=== PATIENT | female | born 1965 | race Caucasian/White ===

== ENCOUNTER 2021-07-23 08:34 | Observation (INO) | payer BC ==
--- NOTE | 2021-07-23 08:40 | EDM.PDOC ---
ED HPI GENERAL MEDICAL PROBLEM - General Chief Complaint: Trauma Stated Complaint: EMS Time Seen by Provider: 07/23/21 08:35 Source of Information: Reports: Patient History Limitations: Reports: No Limitations - History of Present Illness INITIAL COMMENTS - FREE TEXT/NARRATIVE: Patient is a 56-year-old female who presents today after fall down a few steps. Per patient she is unsure she hit her head which does have a bruise. Patient has a left arm deformity and was placed in a sling by EMS and given morphine and Versed. Patient is awake but seems slightly sleepy likely from the medication was answer questions appropriately. On exam she complains of pain to the left arm. She denies any chest or lower extremity pain. Patient airways intact good bilateral breath sounds and good pulses in the upper extremities Bilateral Arm Pain Score (Numeric/FACES): 10 - Related Data Allergies Allergy/AdvReac Type Severity Reaction Status Date / Time No Known Allergies Allergy Verified 07/23/21 08:39 Home Meds: Home Meds . [No Known Home Meds] 07/23/21 [History] Review of Systems - Review of Systems Review Of Systems: See Below Constitutional: Reports: No Symptoms Eyes: Reports: No Symptoms Ears: Reports: No Symptoms Nose: Reports: No Symptoms Mouth/Throat: Reports: No Symptoms Respiratory: Reports: No Symptoms Cardiovascular: Reports: No Symptoms GI/Abdominal: Reports: No Symptoms Genitourinary: Reports: No Symptoms Musculoskeletal: Reports: Arm Pain Skin: Reports: No Symptoms Neurological: Reports: No Symptoms Psychiatric: Reports: No Symptoms ED EXAM, GENERAL - Physical Exam Exam: See Below Exam Limited By: Intoxication General Appearance: Alert, WD/WN, Mild Distress Eye Exam: Bilateral Eye: EOMI, PERRL Throat/Mouth: Normal Inspection, Other (Bleeding from left-sided tongue) Neck: Normal Inspection, Supple, Tender Midline Respiratory/Chest: No Respiratory Distress, Lungs Clear, Normal Breath Sounds Cardiovascular: Normal Peripheral Pulses, Regular Rate, Rhythm GI/Abdominal: Normal Bowel Sounds, Soft, Non-Tender Extremities: Normal Range of Motion (Normal range of motion all other extremities), Limited Range of Motion (Limited range of motion of left elbow). No: Normal Inspection (Deformity of left elbow and right thumb lower extremities are intact) Neurological: Alert, Oriented ED TRAUMA EXTREMITY PROCEDURES - Joint Reduction Left Elbow Sedation: Conscious Sedation Pre-Procedure NV Status: Normal Post-Procedure NV Status: Normal Technique: Traction/Counter Traction Number of Attempts: 2 Post-Reduction Imaging: Acceptably Reduced, Fracture Seen Joint Reduction Complications: No Progress/Comments: We attempted to reduce twice looks to be in but will be moving seems to have slipped out again. We did speak to orthopedics and states that it could just be unstable joint and that needs to be repaired. Patient was placed in a splint and remains neurovascular intact. Course - Vital Signs Last Recorded V/S: Last Vital Signs Temp 97.8 F 07/23/21 08:37 Pulse 98 07/23/21 15:32 Resp 18 07/23/21 15:32 BP 190/106 H 07/23/21 15:32 Pulse Ox 98 07/23/21 15:32 - Orders/Labs/Meds Orders: Active Orders 24 hr Category Date Time Status CORONAVIRUS COVID-19 KANDY [MOLEC] Stat Lab 07/23/21 15:39 Received Labs: Laboratory Tests 07/23/21 07/23/21 07/23/21 Range/Units 10:55 10:55 10:55 WBC 16.09 H (4.0-11.0) K/uL RBC 4.18 L (4.30-5.90) M/uL Hgb 14.6 (12.0-16.0) g/dL Hct 41.0 (36.0-46.0) % MCV 98.1 H (80.0-98.0) fL MCH 34.9 H (27.0-32.0) pg MCHC 35.6 (31.0-37.0) g/dL RDW Std Deviation 45.3 (28.0-62.0) fl RDW Coeff of Michael 13 (11.0-15.0) % Plt Count 283 (150-400) K/uL MPV 9.60 (7.40-12.00) fL Neut % (Auto) 84.6 H (48.0-80.0) % Lymph % (Auto) 9.9 L (16.0-40.0) % Dade % (Auto) 4.5 (0.0-15.0) % Eos % (Auto) 0.6 (0.0-7.0) % Baso % (Auto) 0.4 (0.0-1.5) % Neut # (Auto) 13.6 H (1.4-5.7) K/uL Lymph # (Auto) 1.6 (0.6-2.4) K/uL Dade # (Auto) 0.7 (0.0-0.8) K/uL Eos # (Auto) 0.1 (0.0-0.7) K/uL Baso # (Auto) 0.1 (0.0-0.1) K/uL Nucleated RBC % 0.0 /100WBC Nucleated RBCs # 0 K/uL INR 0.96 APTT 23.0 (18.6-31.3) SEC Sodium 138 (136-145) mmol/L Potassium 3.5 (3.5-5.1) mmol/L Chloride 101 (98-107) mmol/L Carbon Dioxide 24.6 (21.0-32.0) mmol/L BUN 7 (7.0-18.0) mg/dL Creatinine 0.6 (0.6-1.0) mg/dL Est Cr Clr Drug Dosing 82.80 mL/min Estimated GFR (MDRD) > 60.0 ml/min Glucose 174 H (74-106) mg/dL Calcium 8.1 L (8.5-10.1) mg/dL Total Bilirubin 0.3 (0.2-1.0) mg/dL AST 38 H (15-37) IU/L ALT 48 (14-63) IU/L Alkaline Phosphatase 70 (46-116) U/L Total Protein 7.1 (6.4-8.2) g/dL Albumin 3.7 (3.4-5.0) g/dL Globulin 3.4 (2.6-4.0) g/dL Albumin/Globulin Ratio 1.1 (0.9-1.6) Ethyl Alcohol 5 mg/dL Meds: Medications Discontinued Medications Generic Name Dose Route Start Last Admin Trade Name Freq PRN Reason Stop Dose Admin Ketamine HCl Confirm 07/23/21 13:21 Ketamine 500 Mg/10 Ml Mdv Administered 07/23/21 13:22 Dose 500 mg .ROUTE .STK-MED ONE Ketorolac Tromethamine Confirm 07/23/21 13:21 Ketorolac 15 Mg/Ml Sdv Administered 07/23/21 13:22 Dose 15 mg .ROUTE .STK-MED ONE Morphine Sulfate 4 mg 07/23/21 09:02 07/23/21 09:10 Morphine 4 Mg/Ml Syringe IVPUSH 07/23/21 09:03 4 mg ONETIME ONE Administration Propofol Confirm 07/23/21 13:21 Propofol 200 Mg/20 Ml Sdv Administered 07/23/21 13:22 Dose 200 mg .ROUTE .STK-MED ONE - Re-Assessments/Exams Free Text/Narrative Re-Assessment/Exam: 07/23/21 11:35 Patient C-spine is negative collar will be removed. Will talk to neurosurgery she has a small subdural before we reduce arm. 07/23/21 12:26 Still waiting to hear back from neurosurgery did contact our general surgeon he remain with case and we will likely transfer due to subdural and elbow dislocation. 07/23/21 15:[address] Mora from orthopedics at [place] and made him aware that we are having difficulty keeping the elbow in place he states that he wants the patient is neurovascularly intact and is somewhat aligned to the patient can follow-up with his colleague and [facility]'s week. We spoke to our trauma surgeon here and we will keep patient in the ED and observe and likely discharge. Patient will be given all of the discharge instructions. 07/23/21 15:49 Dr. Aranda Orthopedic Surgery Azucena [phone] [place] [address] [address], [address] Departure - Departure Time of Disposition: 15:49 Disposition: Refer to Observation Condition: Good Clinical Impression: Subdural hematoma, Elbow dislocation - Discharge Information *PRESCRIPTION DRUG MONITORING PROGRAM REVIEWED*: Not Applicable *COPY OF PRESCRIPTION DRUG MONITORING REPORT IN PATIENT MARGARET: Not Applicable Instructions: Subdural Hematoma Evacuation, Care After Referrals: Rosalio Negrete MD [Primary Care Provider] - Forms: ED Department Discharge Critical Care Note - Critical Care Note Total Time (mins): 55 Comments: Critical Care Procedure Note Authorized and Performed by: Dr. Gamez Total critical care time: Approximately Due to a high probability of clinically significant, life threatening deterioration, the patient required my highest level of preparedness to intervene emergently and I personally spent this critical care time directly and personally managing the patient. This critical care time included obtaining a history; examining the patient; pulse oximetry; ordering and review of studies; arranging urgent treatment with development of a management plan; evaluation of patient's response to treatment; frequent reassessment; and, discussions with other providers. This critical care time was performed to assess and manage the high probability of imminent, life-threatening deterioration that could result in multi-organ failure. It was exclusive of separately billable procedures and treating other patients and teaching time. Sepsis Event Note (ED) - Focused Exam Vital Signs: Vital Signs Temp Pulse Resp BP Pulse Ox 07/23/21 15:32 98 18 190/106 H 98 07/23/21 15:00 100 18 146/114 H 98 07/23/21 14:30 96 19 201/109 H 99 07/23/21 14:00 101 H 18 193/117 H 97 07/23/21 13:30 96 19 200/124 H 98 07/23/21 13:00 104 H 18 178/102 H 98 07/23/21 12:30 104 H 19 182/102 H 97 07/23/21 12:08 99 18 190/103 H 98 07/23/21 11:34 102 H 19 175/100 H 96 07/23/21 11:04 106 H 18 171/95 H 95 07/23/21 10:32 100 19 176/105 H 94 L 07/23/21 10:05 93 18 170/95 H 95 07/23/21 09:30 89 19 158/94 H 95 07/23/21 09:04 18 170/100 H 96 07/23/21 08:37 97.8 F 79 18 158/87 H 96 07/23/21 08:34 98.2 F 84 18 158/81 H 93 L - My Orders Last 24 Hours: My Active Orders 07/23/21 15:39 CORONAVIRUS COVID-19 KANDY [MOLEC] Stat - Assessment/Plan Last 24 Hours: My Active Orders 07/23/21 15:39 CORONAVIRUS COVID-19 KANDY [MOLEC] Stat Plan: Patient is a 56-year-old female who presents today for a fall down steps. Patient has obvious left elbow deformity and possible right thumb dislocation. Patient has some minimal tenderness on the midline of the neck the patient smells of alcohol but states she had drinks last night. Will obtain labs CT and reassess patient.
[2021-07-23] MEDS ORDERED: Morphine 4 MG/ML Syringe IVPUSH ONE (09:02)
--- NOTE | 2021-07-23 09:42 | CR ---
Indication: Injury and pain Technique: Left hand 2 views Comparison: None Findings: Bones: Alignment is normal. No fractures or bone lesions. Joint spaces: Mild arthritic changes in the IP joints and 1st CMC joint. Soft tissues: Unremarkable. Impression: No sign of acute injury. No sign of acute fracture or dislocation. Dictated by Henrique Martinez MD @ 07/23/2021 9:39:[address] Henrique Martinez @ Jul 23 2021 9:39AM
--- NOTE | 2021-07-23 09:43 | CR ---
Indication: Trauma, fall with elbow deformity Technique: Left forearm 2 views Comparison: None Findings/Impression: Bones: There is a dislocation of the elbow joint. A displaced bone fragment is believed to represent an avulsion fracture of the coronoid process. No other distinct fracture. Soft tissues: Generalized soft tissue swelling. Dictated by Henrique Martinez MD @ 07/23/2021 9:42:[address] Henrique Martinez @ Jul 23 2021 9:42AM
--- NOTE | 2021-07-23 10:00 | CR ---
Indication: Thumb dislocation Technique: Right hand 3 views Comparison: None Findings: Bones: The thumb is dislocated at the metacarpophalangeal joint. Alignment otherwise normal. No fracture evident. Joint spaces: Moderate arthritic changes in the IP joints and 1st CMC joint. Soft tissues: Unremarkable. Dictated by Henrique Martinez MD @ 07/23/2021 9:59:[address] Henrique Martinez @ Jul 23 2021 9:59AM
--- NOTE | 2021-07-23 10:55 | CT ---
INDICATION: Trauma, fall. TECHNIQUE: CT head without contrast. COMPARISON: None. FINDINGS: CSF spaces: Within normal limits for age. Brain parenchyma and extra-axial spaces: There is a very small thin acute subdural hematoma along the anterior interhemispheric fissure demonstrated on the axial series 201, image 24 in the sagittal series 203, image 21. No other sign of intracranial hemorrhage. No mass effect or midline shift. Farris-white matter distinction intact. Skull base and calvarium: The visualized paranasal sinuses and mastoid air cells demonstrate no acute or significant findings. The visualized orbits are grossly unremarkable. No skull fractures. Left frontal scalp contusion present. IMPRESSION: Left frontal scalp contusion with a very small thin acute subdural hematoma along the anterior interhemispheric fissure. Remainder of the exam is unremarkable. Please note that all CT scans at this facility use dose modulation, iterative reconstruction, and/or weight-based dosing when appropriate to reduce radiation dose to as low as reasonably achievable. Dictated by Henrique Martinez MD @ 07/23/2021 10:53:[address] Henrique Martinez @ Jul 23 2021 10:53AM
--- NOTE | 2021-07-23 10:59 | CT ---
INDICATION: Trauma, fall. TECHNIQUE: CT cervical spine without contrast. COMPARISON: None FINDINGS: Vertebrae: Alignment is normal. There are no fractures or suspicious bony lesions. Discs and facet joints: There are degenerative disc changes most severe at C5-6 and C6-7. There are multilevel degenerative changes in the facets. Extraspinal findings: Paraspinous soft tissues are unremarkable. IMPRESSION: 1. No sign of acute injury. 2. Multilevel degenerative spondylosis. Please note that all CT scans at this facility use dose modulation, iterative reconstruction, and/or weight-based dosing when appropriate to reduce radiation dose to as low as reasonably achievable. Dictated by Henrique Martinez MD @ 07/23/2021 10:58:[address] Henrique Martinez @ Jul 23 2021 10:58AM
[2021-07-23 12:01] LABS: BLOOD UREA NITROGEN,BUN 7 mg/dL (7.0-18.0); CARBON DIOXIDE,CO2 24.6 mmol/L (21.0-32.0); CHLORIDE,CL 101 mmol/L (98-107); GLUCOSE RANDOM 174 mg/dL (74-106); POTASSIUM,K 3.5 mmol/L (3.5-5.1); SODIUM,NA 138 mmol/L (136-145)
--- NOTE | 2021-07-23 12:13 | CR ---
INDICATION: Fall down stairs. TECHNIQUE: Chest 1 view. COMPARISON: None FINDINGS: Cardiovascular and mediastinum: Heart size and vasculature are normal in caliber and appearance. Mediastinum is within normal limits. Lungs and pleural space: Lungs are clear. No pleural effusion. No pneumothorax. Bones and soft tissues: No acute findings. IMPRESSION: No acute abnormality identified. Dictated by Howie Roe MD @ 07/23/2021 12:11:[address] Howie Roe @ Jul 23 2021 12:11PM
[2021-07-23] MEDS ORDERED: Ketorolac 15 MG/ML SDV ONE (13:21)
[2021-07-23] MEDS ORDERED: Ketamine 500 mg/10 ML MDV ONE (13:21)
[2021-07-23] MEDS ORDERED: Propofol 200 MG/20 ML SDV ONE (13:21)
--- NOTE | 2021-07-23 14:09 | PCM.SN.2 ---
- Free Text/Narrative Note: Anesthesia Start:1330 Anesthesia End: 1400 Asked to provide procedural sedation for ER patient requiring closed reduction left elbow and closed reduction right thumb. Verbal consent obtained and time out performed. Full monitoring in place and oxygen by NC at 3l/min IV toradol 15mg + 100mg IV propofol +75mg IV Ketamine administered. VSS. Patient recovered to person and place following successful reduction and report given to CARE ASSOCIATE. Dilip Ardon MD
--- NOTE | 2021-07-23 14:40 | CR ---
INDICATION: Post reduction. TECHNIQUE: AP and lateral views of the left elbow. COMPARISON: Left elbow x-rays performed earlier today. FINDINGS: Partial reduction of the fracture dislocation. Radius and ulna remained dislocated laterally with respect to the humerus. Comminuted fracture fragments of the radial head displaced. Fiberglass splint in place. IMPRESSION: Persistent lateral dislocation of the radius and ulna with respect to the humerus and comminuted radial head fracture fragments displaced. Dictated by Carlos Gordon MD @ 07/23/2021 2:38:[address] Carlos Gordon @ Jul 23 2021 2:38PM
--- NOTE | 2021-07-23 14:48 | CR ---
Indication: Dislocation post reduction Technique: Right thumb 3 views Comparison: 07/23/2021 Findings/Impression: Dislocation has been successfully reduced. Bone alignment is now normal. No fracture or other new abnormality. Dictated by Henrique Martinez MD @ 07/23/2021 2:47:[address] Henrique Martinez @ Jul 23 2021 2:47PM
[2021-07-23] MEDS ORDERED: Ondansetron 4 MG/2 ML SDV IVPUSH PRN (17:44)
[2021-07-23] MEDS ORDERED: Lactated Ringers 1,000 ML IV SCH (17:45)
[2021-07-23] MEDS ORDERED: LORazepam 1 MG Tab PO PRN (17:51)
[2021-07-23] MEDS ORDERED: Metoprolol Succinate 100 MG Tab.ER PO SCH (18:30)
[2021-07-23] MEDS: Morphine 10 MG/ML Syringe IVPUSH PRN ×2 (19:48→23:36)
--- NOTE | 2021-07-23 20:38 | CONS ---
DATE OF CONSULTATION: 07/23/2021 DATE OF : 1965 PRIMARY CARE PHYSICIAN: Rosalio Negrete M.D. SUBJECTIVE: The patient is a pleasant 56-year-old female who slipped down her stairs earlier this morning. She thinks she fell down about 5 steps. She denies any loss of consciousness. She says it happened very quickly, is unsure if she hit her head or not though. She did come into the ER, was evaluated by our ER attending, Dr. Gamez. She was found to have radius and ulnar dislocation fracture of elbow. Dr. Gamez said he tried to reduce it a couple of times but got it better. This has been discussed and he did discuss with Orthopedics in [place] with Dr. Mora, who said to keep the splint on and follow up in clinic. The patient also had a dislocated right thumb that has been put back into place. The patient had a very small, thin, acute subdural hematoma. This again was also discussed with Dr. Mora of Neurosurgery, who she will follow up next week. The patient had a CT of the spine, which showed no acute abnormalities. Chest x-ray was normal. Currently, the patient says she is feeling better. Her only pain she says is in her right thumb, her left elbow. She denies any other pain or discomfort. When seen, she was actually walking around her ER room. Her C-collar has been cleared by the ER. The patient says currently she is feeling okay. Her pain is well controlled. PAST MEDICAL HISTORY: 1. Fibromyalgia. 2. Hypertension. 3. Anxiety. 4. Depression. ALLERGIES: No known drug allergies. PAST SURGICAL HISTORY: The patient denies any. FAMILY HISTORY: Family history of diabetes and thyroid disease. Sister has rheumatoid arthritis. SOCIAL HISTORY: 1. Denies any smoking, but does smoke marijuana on occasion. 2. Denies any drug use. 3. Has 3-4 beers a couple times a week. The patient says last night she was drinking on the phone with her sister, but she only had 3-4 beers. REVIEW OF SYSTEMS: Complete 12 plus review of systems was done and was negative other than HPI. CURRENT HOME MEDICATIONS: 1. Cyclobenzaprine 10 mg p.o. daily. 2. Ibuprofen 200 mg as needed. 3. Lorazepam 1 mg t.i.d. as needed. 4. Magnesium 400 mg p.o. daily. 5. Metformin 5 mg p.o. daily. 6. Metoprolol 100 mg 1-1/2 tablet every 24 hours. 7. Sertraline 50 mg daily. 8. Telmisartan 80 mg p.o. daily. IMAGING: As per HPI. LABS: White cell count is 16.09, hemoglobin is 14.6, platelet count is 283. INR 0.96. Sodium 138, potassium 3.5, chloride 101, BUN 7, creatinine 0.6, bilirubin 0.8, AST is 38, ALT is 48, alkaline phosphatase is 70. Alcohol was 5. COVID was negative. PHYSICAL EXAMINATION: GENERAL: The patient is alert, oriented, in no acute distress. VITAL SIGNS: Temperature is 97.8, pulse is 105, blood pressure is 190/108, saturating 98% on room air. HEENT: Head is normocephalic. She looks to have a slight bruise on her upper left forehead. Eyes are round, reactive into light. NECK: Supple. No pain. She has full motion. LUNGS: She has bilateral rhonchi or wheezing heard. HEART: Regular rate and rhythm. No murmur appreciated. BACK: No step-offs and no bruising. ABDOMEN: Soft, nontender, nondistended. EXTREMITIES: No edema. She does have swelling in her right thumb but it is mobile. Left arm is in the splint. NEUROLOGIC: She is walking around and then appears to have no gross deficit. ASSESSMENT AND PLAN: This is a pleasant 56-year-old female who fell down 5 steps earlier this morning. She was found to have a very small, thin, acute subdural hematoma on the anterior hemispheric fissure. She also has left dislocation of her elbow joint and right thumb dislocation. Dr. Gamez has discussed the patient with both Neurosurgery and Orthopedics who feel that operation is needed. At this point, this is in good position. The patient should be admitted for observation and then discharge for outpatient followup. I did go over the patient what the plan was. She will be admitted for observation. We will check a CT scan in the morning. If there is expansion of the subdural, then she will go home and followup with Neurosurgery and Orthopedics. All the patient's questions were answered. SHAY DAVE /[id number]
--- NOTE | 2021-07-23 21:06 | PCM.HP.2 ---
H&P History of Present Illness - General Date of Service: 07/23/21 Admit Problem/Dx: Admission Diagnosis/Problem Admission Diagnosis/Problem Subdural hematoma - History of Present Illness Initial Comments - Free Text/Narative: 56 yo female with pmh of hypertension who presents to the ED after falling down five stairs this morning. She reports pain in her elbow and hands afterwords. She was discovered to have a dislocated elbow and small subdural hematoma. Patient reports that propranolol and Micardis has been keeping her blood pressure well controlled. She was on metoprolol but was switched to propranolol which she says has improved her headaches and depression. She usually takes her blood pressure medications at around 3-4 pm. She had not taking them this afternoon and on the medical floor she was noted to have elevated blood pressures int eh 200s-180 systolic. She reports headache which is typical for when she does not take her blood pressure medications. Bilateral Arm Pain Score (Numeric/FACES): 10 - Related Data Allergies/Adverse Reactions: Allergies Allergy/AdvReac Type Severity Reaction Status Date / Time No Known Allergies Allergy Verified 07/23/21 18:08 Home Medications: Home Meds LORazepam [Ativan] 1 mg PO TID PRN 07/23/21 [History] Propranolol HCl [Propranolol HCl ER] 120 mg PO DAILY 07/23/21 [History] Sertraline HCl [Zoloft] 50 mg PO DAILY 07/23/21 [History] Telmisartan [Micardis] 80 mg PO DAILY 07/23/21 [History] Past Medical History - Past Health History Medical/Surgical History: Denies Medical/Surgical History Cardiovascular History: Reports: Hypertension Gastrointestinal History: Reports: GERD, Irritable Bowel Syndrome [employer] History: Reports: Musculoskeletal History: Reports: Fibromyalgia Psychiatric History: Reports: Anxiety, Depression - Infectious Disease History Infectious Disease History: Reports: Chicken Pox Social & Family History - Family History Family Medical History: No Pertinent Family History - Tobacco Use Tobacco Use Status *Q: Never Tobacco User Second Hand Smoke Exposure: Yes - Caffeine Use Caffeine Use: Reports: Soda, Tea - Alcohol Use Days Per Week of Alcohol Use: 3 Number of Drinks Per Day: 3 Total Drinks Per Week: 9 Date of Last Drink: 07/23/21 Time of Last Drink: 01:00 - Recreational Drug Use Recreational Drug Use: No Drug Use in Last 12 Months: Yes Recreational Drug Type: Reports: Marijuana/Hashish H&P Review of Systems - Review of Systems: Review Of Systems: Comprehensive ROS is negative, except as noted in HPI. Exam - Exam Exam: See Below - Vital Signs Vital Signs: Last Vital Signs Temp 36.9 C 07/23/21 19:36 Pulse 106 H 07/23/21 19:36 Resp 19 07/23/21 19:36 BP 181/90 H 07/23/21 19:39 Pulse Ox 96 07/23/21 19:36 Weight: 59.874 kg - Exam General: Alert, Oriented HEENT: Mucosa Moist & [place] Neck: Supple Lungs: Clear to Auscultation, Normal Respiratory Effort Cardiovascular: Regular Rate, Regular Rhythm GI/Abdominal Exam: Normal Bowel Sounds, Soft, Non-Tender Extremities: Non-Tender, No Pedal Edema Skin: Warm, Dry, Intact Neurological: Cranial Nerves Intact. No: Focal Deficit - Patient Data Lab Results Last 24 hrs: Laboratory Results - last 24 hr 07/23/21 07/23/21 07/23/21 Range/Units 10:55 10:55 10:55 WBC 16.09 H (4.0-11.0) K/uL RBC 4.18 L (4.30-5.90) M/uL Hgb 14.6 (12.0-16.0) g/dL Hct 41.0 (36.0-46.0) % MCV 98.1 H (80.0-98.0) fL MCH 34.9 H (27.0-32.0) pg MCHC 35.6 (31.0-37.0) g/dL RDW Std Deviation 45.3 (28.0-62.0) fl RDW Coeff of Michael 13 (11.0-15.0) % Plt Count 283 (150-400) K/uL MPV 9.60 (7.40-12.00) fL Neut % (Auto) 84.6 H (48.0-80.0) % Lymph % (Auto) 9.9 L (16.0-40.0) % [place] % (Auto) 4.5 (0.0-15.0) % Eos % (Auto) 0.6 (0.0-7.0) % Baso % (Auto) 0.4 (0.0-1.5) % Neut # (Auto) 13.6 H (1.4-5.7) K/uL Lymph # (Auto) 1.6 (0.6-2.4) K/uL [place] # (Auto) 0.7 (0.0-0.8) K/uL Eos # (Auto) 0.1 (0.0-0.7) K/uL Baso # (Auto) 0.1 (0.0-0.1) K/uL Nucleated RBC % 0.0 /100WBC Nucleated RBCs # 0 K/uL INR 0.96 APTT 23.0 (18.6-31.3) SEC Sodium 138 (136-145) mmol/L Potassium 3.5 (3.5-5.1) mmol/L Chloride 101 (98-107) mmol/L Carbon Dioxide 24.6 (21.0-32.0) mmol/L BUN 7 (7.0-18.0) mg/dL Creatinine 0.6 (0.6-1.0) mg/dL Est Cr Clr Drug Dosing 82.80 mL/min Estimated GFR (MDRD) > 60.0 ml/min Glucose 174 H (74-106) mg/dL Calcium 8.1 L (8.5-10.1) mg/dL Total Bilirubin 0.3 (0.2-1.0) mg/dL AST 38 H (15-37) IU/L ALT 48 (14-63) IU/L Alkaline Phosphatase 70 (46-116) U/L Total Protein 7.1 (6.4-8.2) g/dL Albumin 3.7 (3.4-5.0) g/dL Globulin 3.4 (2.6-4.0) g/dL Albumin/Globulin Ratio 1.1 (0.9-1.6) Urine Color Urine Appearance Urine pH (5.0-8.0) Ur Specific [place] (1.001-1.035) Urine Protein (NEGATIVE) mg/dL Urine Glucose (UA) (NEGATIVE) mg/dL Urine Ketones (NEGATIVE) mg/dL Urine Occult Blood (NEGATIVE) Urine Nitrite (NEGATIVE) Urine Bilirubin (NEGATIVE) Urine Urobilinogen (<2.0) EU/dL Ur Leukocyte Esterase (NEGATIVE) Urine RBC (0-2/HPF) Urine WBC (0-5/HPF) Ur Epithelial Cells (NONE-FEW) Urine Bacteria (NEGATIVE) Urine Mucus (NONE-MOD) Ethyl Alcohol 5 mg/dL SARS-CoV-2 RNA (KANDY) (NEGATIVE) 07/23/21 07/23/21 Range/Units 15:39 18:40 WBC (4.0-11.0) K/uL RBC (4.30-5.90) M/uL Hgb (12.0-16.0) g/dL Hct (36.0-46.0) % MCV (80.0-98.0) fL MCH (27.0-32.0) pg MCHC (31.0-37.0) g/dL RDW Std Deviation (28.0-62.0) fl RDW Coeff of Michael (11.0-15.0) % Plt Count (150-400) K/uL MPV (7.40-12.00) fL Neut % (Auto) (48.0-80.0) % Lymph % (Auto) (16.0-40.0) % [place] % (Auto) (0.0-15.0) % Eos % (Auto) (0.0-7.0) % Baso % (Auto) (0.0-1.5) % Neut # (Auto) (1.4-5.7) K/uL Lymph # (Auto) (0.6-2.4) K/uL [place] # (Auto) (0.0-0.8) K/uL Eos # (Auto) (0.0-0.7) K/uL Baso # (Auto) (0.0-0.1) K/uL Nucleated RBC % /100WBC Nucleated RBCs # K/uL INR APTT (18.6-31.3) SEC Sodium (136-145) mmol/L Potassium (3.5-5.1) mmol/L Chloride (98-107) mmol/L Carbon Dioxide (21.0-32.0) mmol/L BUN (7.0-18.0) mg/dL Creatinine (0.6-1.0) mg/dL Est Cr Clr Drug Dosing mL/min Estimated GFR (MDRD) ml/min Glucose (74-106) mg/dL Calcium (8.5-10.1) mg/dL Total Bilirubin (0.2-1.0) mg/dL AST (15-37) IU/L ALT (14-63) IU/L Alkaline Phosphatase (46-116) U/L Total Protein (6.4-8.2) g/dL Albumin (3.4-5.0) g/dL Globulin (2.6-4.0) g/dL Albumin/Globulin Ratio (0.9-1.6) Urine Color YELLOW Urine Appearance CLEAR Urine pH 6.0 (5.0-8.0) Ur Specific [place] 1.020 (1.001-1.035) Urine Protein NEGATIVE (NEGATIVE) mg/dL Urine Glucose (UA) 100 H (NEGATIVE) mg/dL Urine Ketones NEGATIVE (NEGATIVE) mg/dL Urine Occult Blood TRACE-INTACT H (NEGATIVE) Urine Nitrite NEGATIVE (NEGATIVE) Urine Bilirubin NEGATIVE (NEGATIVE) Urine Urobilinogen 0.2 (<2.0) EU/dL Ur Leukocyte Esterase NEGATIVE (NEGATIVE) Urine RBC 0-1 (0-2/HPF) Urine WBC 0-1 (0-5/HPF) Ur Epithelial Cells FEW (NONE-FEW) Urine Bacteria RARE (NEGATIVE) Urine Mucus LIGHT (NONE-MOD) Ethyl Alcohol mg/dL SARS-CoV-2 RNA (KANDY) NEGATIVE (NEGATIVE) Result Diagrams: 07/24/21 05:42 07/23/21 10:55 Sepsis Event Note - Focused Exam Vital Signs: Vital Signs Temp Pulse Pulse Resp BP BP Pulse Ox 07/23/21 19:39 181/90 H 07/23/21 19:36 36.9 C 106 H 19 181/90 H 96 07/23/21 18:45 97 190/100 H 07/23/21 18:00 07/23/21 17:49 36.1 C 97 19 190/100 H 97 07/23/21 17:36 105 H 18 92 L 07/23/21 16:00 106 H 18 190/108 H 92 L 07/23/21 15:32 98 18 190/106 H 98 07/23/21 15:00 100 18 146/114 H 98 07/23/21 14:30 96 19 201/109 H 99 07/23/21 14:00 101 H 18 193/117 H 97 07/23/21 13:30 96 19 200/124 H 98 07/23/21 13:00 104 H 18 178/102 H 98 07/23/21 12:30 104 H 19 182/102 H 97 07/23/21 12:08 99 18 190/103 H 98 07/23/21 11:34 102 H 19 175/100 H 96 07/23/21 11:04 106 H 18 171/95 H 95 07/23/21 10:32 100 19 176/105 H 94 L 07/23/21 10:05 93 18 170/95 H 95 07/23/21 09:30 89 19 158/94 H 95 07/23/21 09:04 18 170/100 H 96 Pulse Ox 07/23/21 19:39 07/23/21 19:36 07/23/21 18:45 07/23/21 18:00 98 07/23/21 17:49 07/23/21 17:36 07/23/21 16:00 07/23/21 15:32 07/23/21 15:00 07/23/21 14:30 07/23/21 14:00 07/23/21 13:30 07/23/21 13:00 07/23/21 12:30 07/23/21 12:08 07/23/21 11:34 07/23/21 11:04 07/23/21 10:32 07/23/21 10:05 07/23/21 09:30 07/23/21 09:04 Problem List Initiated/Reviewed/Updated: Yes Orders Last 24hrs: Active Orders 24 hr Category Date Time Status Patient Status [ADT] Routine ADT 07/23/21 15:50 Active Ambulate [RC] ASDIRECTED Care 07/23/21 17:44 Active Notify Provider Consults [RC] ASDIRECTED Care 07/23/21 17:49 Active Oxygen Therapy [RC] PRN Care 07/23/21 17:44 Active Telemetry Monitoring [Cardiac Monitoring] [RC] . Care 07/23/21 17:30 Active DIRECTED Up With Assistance [RC] ASDIRECTED Care 07/23/21 17:44 Active VTE/DVT Education [RC] PER UNIT ROUTINE Care 07/23/21 17:44 Active Vital Signs [RC] Q4H Care 07/23/21 17:44 Active Consult to Physician [CONS] Routine Cons 07/23/21 17:44 Active Heart Healthy Diet [DIET] Diet 07/23/21 Dinner Active Head wo Cont [CT] Routine Exams 07/24/21 06:00 Ordered CBC WITH AUTO DIFF [HEME] AM Lab 07/24/21 05:11 Ordered Acetaminophen/HYDROcodone [[place] 325-5 MG] Med 07/23/21 17:44 Active 1 tab PO Q4H PRN LORazepam [Ativan] Med 07/23/21 17:51 Active 0.5 mg PO Q8H PRN Lactated Ringers [Ringers, Lactated] 1,000 ml Med 07/23/21 17:45 Active IV ASDIRECTED Metoprolol Succinate [Toprol XL] Med 07/23/21 18:30 Active 150 mg PO DAILY Morphine Med 07/23/21 17:44 Active 2 mg IVPUSH Q2H PRN Ondansetron [Zofran] Med 07/23/21 17:44 Active 4 mg IVPUSH Q6H PRN Sertraline [Zoloft] Med 07/24/21 09:00 Active 50 mg PO DAILY Telmisartan [Micardis] Med 07/23/21 18:30 Active 80 mg PO DAILY Resuscitation Status Routine Resus Stat 07/23/21 17:44 Ordered Medication Orders Hydrocodone Bitart/Acetaminophen (Acetaminophen/Hydrocodone 325-5 Mg Tab) 1 tab PO Q4H PRN PRN Reason: Pain (moderate 4-6) Lactated Ringer's (Ringers, Lactated) 1,000 mls @ 80 mls/hr IV ASDIRECTED [facility] Last Admin: 07/23/21 18:31 Dose: 80 mls/hr Documented by: DEN Lorazepam (Lorazepam 1 Mg Tab) 0.5 mg PO Q8H PRN PRN Reason: Anxiety Metoprolol Succinate (Metoprolol Succinate 100 Mg Tab.Er) 150 mg PO DAILY [facility] Last Admin: 07/23/21 18:45 Dose: 150 mg Documented by: DEN Morphine Sulfate (Morphine 10 Mg/Ml Syringe) 2 mg IVPUSH Q2H PRN PRN Reason: Pain (severe 7-10) Stop: 07/24/21 17:47 Last Admin: 07/23/21 19:48 Dose: 2 mg Documented by: SHADIA Ondansetron HCl (Ondansetron 4 Mg/2 Ml Sdv) 4 mg IVPUSH Q6H PRN PRN Reason: Nausea/Vomiting Sertraline HCl (Sertraline 50 Mg Tab) 50 mg PO DAILY [facility] Telmisartan (Telmisartan 40 Mg Tab) 80 mg PO DAILY [facility] Last Admin: 07/23/21 19:39 Dose: 80 mg Documented by: RAMEZGEN Assessment/Plan Comment:: 56 yo female admitted following fall with elbow dislocation and small subdural hematoma. Patients blood pressure has been elevated. She did received Micardis and metoprolol. I offered to restart her propranolol but she would like to wait as she already took metoprolol. I would recommend also insuring adequate pain control because that could also be contributing to her rise in blood pressure.
[2021-07-23] MEDS: Acetaminophen/HYDROcodone 325-5 MG Tab PO PRN (22:03)
[2021-07-23] MEDS ORDERED: cloNIDine 0.1 MG Tab PO ONE (23:36)
[2021-07-24] MEDS: Morphine 2 MG/ML SYRINGE IVPUSH PRN ×2 (01:47→07:47)
[2021-07-24] MEDS: Acetaminophen/HYDROcodone 325-5 MG Tab PO PRN ×3 (03:11→14:46)
--- NOTE | 2021-07-24 08:45 | CT ---
INDICATION: Head pain. Subdural hematoma. TECHNIQUE: CT head without contrast. COMPARISON: July 23, 2021. FINDINGS: CSF spaces: Within normal limits for age. Brain parenchyma and extra-axial spaces: Again demonstrated is a small thin density along the anterior hemispheric fissure suspicious for subdural hematoma, this is unchanged. No sign of hemorrhage elsewhere. No mass effect or midline shift. Skull base and calvarium: The visualized paranasal sinuses and mastoid air cells demonstrate no acute or significant findings. The visualized orbits are grossly unremarkable. No skull fractures. IMPRESSION: Possible very small thin subdural hematoma along the anterior interhemispheric fissure is unchanged. Remainder of the exam is unremarkable and unchanged. Please note that all CT scans at this facility use dose modulation, iterative reconstruction, and/or weight-based dosing when appropriate to reduce radiation dose to as low as reasonably achievable. Dictated by Henrique Martinez MD @ 07/24/2021 8:44:[address] Henrique Martinez @ Jul 24 2021 8:44AM
[2021-07-24] MEDS ORDERED: Metoprolol Succinate 100 MG Tab.ER PO SCH (09:00)
[2021-07-24] MEDS ORDERED: Sertraline 50 MG Tab PO SCH (09:00)
[2021-07-24] MEDS ORDERED: Propranolol 80 MG Cap.ER PO SCH (10:30)
--- NOTE | 2021-07-24 12:16 | PCM.CONSN ---
- General Info Date of Service: 07/24/21 - Review of Systems Systems Review Comment:: reports pain in the elbow, headache improved - Patient Data Vitals - Most Recent: Last Vital Signs Temp 36.1 C 07/24/21 11:47 Pulse 82 07/24/21 11:47 Resp 20 07/24/21 11:47 BP 139/82 07/24/21 11:47 Pulse Ox 96 07/24/21 11:47 Weight - Most Recent: 59.874 kg I&O - Last 24 Hours: Intake & Output 07/23/21 07/24/21 07/24/21 22:59 06:59 14:59 Intake Total 2212 Output Total 1700 Balance 512 Lab Results Last 24 Hours: Laboratory Results - last 24 hr 07/23/21 07/23/21 07/23/21 Range/Units 10:55 15:39 18:40 WBC (4.0-11.0) K/uL RBC (4.30-5.90) M/uL Hgb (12.0-16.0) g/dL Hct (36.0-46.0) % MCV (80.0-98.0) fL MCH (27.0-32.0) pg MCHC (31.0-37.0) g/dL RDW Std Deviation (28.0-62.0) fl RDW Coeff of Michael (11.0-15.0) % Plt Count (150-400) K/uL MPV (7.40-12.00) fL Neut % (Auto) (48.0-80.0) % Lymph % (Auto) (16.0-40.0) % [place] % (Auto) (0.0-15.0) % Eos % (Auto) (0.0-7.0) % Baso % (Auto) (0.0-1.5) % Neut # (Auto) (1.4-5.7) K/uL Lymph # (Auto) (0.6-2.4) K/uL [place] # (Auto) (0.0-0.8) K/uL Eos # (Auto) (0.0-0.7) K/uL Baso # (Auto) (0.0-0.1) K/uL Nucleated RBC % /100WBC Nucleated RBCs # K/uL INR 0.96 APTT 23.0 (18.6-31.3) SEC POC Glucose (70-99) mg/dL Urine Color YELLOW Urine Appearance CLEAR Urine pH 6.0 (5.0-8.0) Ur Specific [place] 1.020 (1.001-1.035) Urine Protein NEGATIVE (NEGATIVE) mg/dL Urine Glucose (UA) 100 H (NEGATIVE) mg/dL Urine Ketones NEGATIVE (NEGATIVE) mg/dL Urine Occult Blood TRACE-INTACT H (NEGATIVE) Urine Nitrite NEGATIVE (NEGATIVE) Urine Bilirubin NEGATIVE (NEGATIVE) Urine Urobilinogen 0.2 (<2.0) EU/dL Ur Leukocyte Esterase NEGATIVE (NEGATIVE) Urine RBC 0-1 (0-2/HPF) Urine WBC 0-1 (0-5/HPF) Ur Epithelial Cells FEW (NONE-FEW) Urine Bacteria RARE (NEGATIVE) Urine Mucus LIGHT (NONE-MOD) SARS-CoV-2 RNA (KANDY) NEGATIVE (NEGATIVE) 07/24/21 07/24/21 Range/Units 05:42 06:52 WBC 12.10 H (4.0-11.0) K/uL RBC 4.04 L (4.30-5.90) M/uL Hgb 13.7 (12.0-16.0) g/dL Hct 40.0 (36.0-46.0) % MCV 99.0 H (80.0-98.0) fL MCH 33.9 H (27.0-32.0) pg MCHC 34.3 (31.0-37.0) g/dL RDW Std Deviation 45.2 (28.0-62.0) fl RDW Coeff of Michael 13 (11.0-15.0) % Plt Count 274 (150-400) K/uL MPV 10.20 (7.40-12.00) fL Neut % (Auto) 68.8 (48.0-80.0) % Lymph % (Auto) 16.8 (16.0-40.0) % [place] % (Auto) 11.8 (0.0-15.0) % Eos % (Auto) 2.3 (0.0-7.0) % Baso % (Auto) 0.3 (0.0-1.5) % Neut # (Auto) 8.3 H (1.4-5.7) K/uL Lymph # (Auto) 2.0 (0.6-2.4) K/uL [place] # (Auto) 1.4 H (0.0-0.8) K/uL Eos # (Auto) 0.3 (0.0-0.7) K/uL Baso # (Auto) 0.0 (0.0-0.1) K/uL Nucleated RBC % 0.0 /100WBC Nucleated RBCs # 0 K/uL INR APTT (18.6-31.3) SEC POC Glucose 134 H (70-99) mg/dL Urine Color Urine Appearance Urine pH (5.0-8.0) Ur Specific [place] (1.001-1.035) Urine Protein (NEGATIVE) mg/dL Urine Glucose (UA) (NEGATIVE) mg/dL Urine Ketones (NEGATIVE) mg/dL Urine Occult Blood (NEGATIVE) Urine Nitrite (NEGATIVE) Urine Bilirubin (NEGATIVE) Urine Urobilinogen (<2.0) EU/dL Ur Leukocyte Esterase (NEGATIVE) Urine RBC (0-2/HPF) Urine WBC (0-5/HPF) Ur Epithelial Cells (NONE-FEW) Urine Bacteria (NEGATIVE) Urine Mucus (NONE-MOD) SARS-CoV-2 RNA (KANDY) (NEGATIVE) Med Orders - Current: Current Medications Hydrocodone Bitart/Acetaminophen (Acetaminophen/Hydrocodone 325-5 Mg Tab) 1 tab PO Q4H PRN PRN Reason: Pain (moderate 4-6) Last Admin: 07/24/21 10:20 Dose: 1 tab Documented by: Lactated Ringer's (Ringers, Lactated) 1,000 mls @ 80 mls/hr IV ASDIRECTED [facility] Last Admin: 07/23/21 18:31 Dose: 80 mls/hr Documented by: Lorazepam (Lorazepam 1 Mg Tab) 0.5 mg PO Q8H PRN PRN Reason: Anxiety Morphine Sulfate (Morphine 2 Mg/Ml Syringe) 2 mg IVPUSH Q2H PRN PRN Reason: Pain (severe 7-10) Last Admin: 07/24/21 07:47 Dose: 2 mg Documented by: Ondansetron HCl (Ondansetron 4 Mg/2 Ml Sdv) 4 mg IVPUSH Q6H PRN PRN Reason: Nausea/Vomiting Propranolol HCl (Propranolol 80 Mg Cap.Er) 80 mg PO DAILY [facility] Last Admin: 07/24/21 10:36 Dose: 80 mg Documented by: Sertraline HCl (Sertraline 50 Mg Tab) 50 mg PO DAILY [facility] Last Admin: 07/24/21 10:21 Dose: 50 mg Documented by: Telmisartan (Telmisartan 40 Mg Tab) 80 mg PO DAILY@1200 AKIN Discontinued Medications Clonidine HCl (Clonidine 0.1 Mg Tab) 0.1 mg PO ONETIME ONE Stop: 07/23/21 23:37 Last Admin: 07/23/21 23:43 Dose: 0.1 mg Documented by: Ketamine HCl (Ketamine 500 Mg/10 Ml Mdv) Confirm Administered Dose 500 mg .ROUTE .STK-MED ONE Stop: 07/23/21 13:22 Last Admin: 07/23/21 18:31 Dose: Not Given Documented by: Ketorolac Tromethamine (Ketorolac 15 Mg/Ml Sdv) Confirm Administered Dose 15 mg .ROUTE .STK-MED ONE Stop: 07/23/21 13:22 Last Admin: 07/23/21 18:31 Dose: Not Given Documented by: Metoprolol Succinate (Metoprolol Succinate 100 Mg Tab.Er) 100 mg PO DAILY [facility] Metoprolol Succinate (Metoprolol Succinate 100 Mg Tab.Er) 150 mg PO DAILY [facility] Last Admin: 07/23/21 18:45 Dose: 150 mg Documented by: Morphine Sulfate (Morphine 4 Mg/Ml Syringe) 4 mg IVPUSH ONETIME ONE Stop: 07/23/21 09:03 Last Admin: 07/23/21 09:10 Dose: 4 mg Documented by: Morphine Sulfate (Morphine 10 Mg/Ml Syringe) 2 mg IVPUSH Q2H PRN PRN Reason: Pain (severe 7-10) Stop: 07/24/21 17:47 Last Admin: 07/23/21 23:36 Dose: 2 mg Documented by: Propofol (Propofol 200 Mg/20 Ml Sdv) Confirm Administered Dose 200 mg .ROUTE .STK-MED ONE Stop: 07/23/21 13:22 Last Admin: 07/23/21 18:30 Dose: Not Given Documented by: Propranolol HCl (Propranolol 60 Mg Cap.Er) 120 mg PO DAILY [facility] Telmisartan (Telmisartan 40 Mg Tab) 40 mg PO DAILY [facility] Telmisartan (Telmisartan 40 Mg Tab) 80 mg PO DAILY [facility] Last Admin: 07/23/21 19:39 Dose: 80 mg Documented by: - Exam General: Alert, Oriented Neck: Supple Lungs: Clear to Auscultation, Normal Respiratory Effort GI/Abdominal Exam: Soft, Non-Tender, No Distention Extremities: No Pedal Edema Sepsis Event Note - Focused Exam Vital Signs: Vital Signs Temp Pulse Resp BP Pulse Ox 07/24/21 11:47 36.1 C 82 20 139/82 96 07/24/21 07:58 36.4 C 72 20 187/95 H 97 07/24/21 04:00 36.9 C 82 18 182/84 H 97 07/24/21 01:22 86 18 189/96 H 95 Consult PN Assessment/Plan Procedures: Procedures ASSAY THYROID STIM HORMONE (10/05/16) COMP SCREEN MAMMOGRAM ADD-ON (10/20/16) COMPREHEN METABOLIC PANEL (08/28/15) ELECTROCARDIOGRAM TRACING (10/18/16) GLYCOSYLATED HEMOGLOBIN TEST (11/06/20) LIPID PANEL (11/06/20) METABOLIC PANEL TOTAL CA (11/06/20) RBC SED RATE AUTOMATED (08/08/14) RHEUMATOID FACTOR TEST QUAL (08/08/14) ROUTINE VENIPUNCTURE (11/06/20) VITAMIN B-12 (08/08/14) Problem List Initiated/Reviewed/Updated: No My Orders Last 24 Hours: My Active Orders 07/23/21 17:30 Telemetry Monitoring [Cardiac Monitoring] [RC] Q8H 07/23/21 21:12 Accu Check [Blood Glucose Check, Bedside] [RC] TIDMEALS 07/24/21 Breakfast [place] [employer] Diet [DIET] Plan: 56 yo female admitted with dislocated elbow and small subdural hematoma. Blood pressure has improved once restarting propranolol.
--- NOTE | 2021-07-24 14:56 | DISCH ---
DATE OF DISCHARGE: 07/24/2021 PRIMARY CARE PHYSICIAN: Rosalio Negrete M.D. PRIMARY DISCHARGE DIAGNOSES: 1. Right thumb dislocation. 2. Left elbow dislocation and fracture. 3. Small subdural hematoma. 4. Hypertension. CONSULTING PHYSICIANS: 1. Hospitalist Service. 2. Neurosurgery, [place]. 3. Orthopedic, [place]. PROCEDURES: None. DISCHARGE MEDICATIONS: 1. Propranolol 120 mg p.o. daily. 2. Zoloft 50 mg p.o. daily. 3. Ativan 1 mg p.o. t.i.d. 4. Micardis 80 mg p.o. daily. 5. Agate 5/325 one or two tablets q.6 hours p.r.n. pain. REASON FOR ADMISSION: The patient is a pleasant 56-year-old female, who yesterday morning fell on some 5 stairs in her house. She denies any loss of consciousness. She comes in to the ER for evaluation. She was found to have a left elbow dislocation and fracture. This was attempted to be reduced multiple times by her ER physician, Dr. Gamez, and was not able to be completely reduced because of fracture. He did call Dr. Mora, Orthopedics from [place], who stated that since it was neurovascularly intact and somewhat aligned, that she could follow up with his colleague, Dr. Pérez in [place] this following week. The patient also had dislocated right thumb, which she did not reduce. The patient was also found to have a very small, thin, acute subdural hematoma along the anterior, internal hemispheric fissure. The patient was admitted for observation. Repeat CT scan for the small subdural hematoma. Dr. Gamez then talked with Dr. Mora, neurosurgeon in [place], who spoke and said as long as the patient to be followed up as outpatient. The patient was admitted to the trauma service. HOSPITAL COURSE: The patient was admitted. The patient did well overnight. She was tolerating her diet and passing flatus. was consulted because of her hypertension. The following morning, the patient had repeat head CT scan, which showed again possibly very small, thin subdural hematoma unchanged from yesterday. The patient was again re-examined by Dr. Gamez, the ER physician. He said the cast was in good position. She did have neurovascular intact, had a pulse, and the hand was warm. The patient will be discharged with a followup with [facility]. DISCHARGE INSTRUCTIONS: The patient should keep her arm in the sling. She needs to come back immediately if she has any numbness, tingling, or any changes in the pain or discomfort. The patient also is to come back if there any change in numbness, tingling in her hand. Did discuss with the patient she is to take it easy. She also needs to therefore only take the Agate or the Ativan, but should not take both at the same time. Also, stay away from alcohol. Also, had a discussion that she should consider having a hand rail in her house to avoid these falls. She has history of falls, not serious in the past. The patient needs to come back if she has any headaches or any other discomfort. The patient says she understands. DISCHARGE EXAMINATION: GENERAL: The patient is sitting comfortably in her room. She is alert and oriented. No acute distress. She is eating lunch. VITAL SIGNS: Temperature is 97.0, pulse is 82, blood pressure is 139/82. The patient complains of no new pains or discomfort other than left elbow and her right hand. She does have movement in her right hand, although it does remain slightly swollen at the base of her thumb. LUNGS: Clear to auscultation. Bilateral rhonchi are heard. HEART: Regular rate and rhythm. No murmur appreciated. SHAY DAVE /[id number]
[2021-07-24] MEDS ORDERED: Propranolol 60 MG Cap.ER PO SCH (15:00)
== END 2021-07-24 14:53 | disposition home or self-care (01) ==
LOC: MW.ED 08:34 → MW.MS 15:50 → UNDOADMOB 16:30
PROVIDERS: ADMIT Surgery; ATTEND Surgery
DX: S06.5X0A Traumatic subdural hemorrhage without loss of consciousness, initial encounter (principal); S52.122A Displaced fracture of head of left radius, initial encounter for closed fracture; S63.104A Unspecified dislocation of right thumb, initial encounter; I10 Essential (primary) hypertension; W10.9XXA Fall (on) (from) unspecified stairs and steps, initial encounter; Z20.822 Contact with and (suspected) exposure to COVID-19
CPT/HCPCS: 36415; 70450; 71045; 72125; 73070; 73090; 73120; 73130; 73140; 80053; 80307; 81001; 82947; 85025; 85610; 85730; 87635; A9270; J1885; J2270; J2704; J7120; 01730; U0002

== ENCOUNTER 2025-07-28 16:48 | Inpatient (IN) | payer MEDICAID, OTHER ==
[2025-07-28 17:24] LABS: GLUCOSE,URINE NEGATIVE (NEGATIVE); OCCULT BLOOD,URINE LARGE (NEGATIVE)
[2025-07-28 17:26] LABS: APPEARANCE,URINE CLOUDY
[2025-07-28 17:28] LABS: BASOPHILS ABSOLUTE AUTO 0.09 K/uL (0.00-0.20); BASOPHILS PERCENT AUTO 0.5 % (0.0-1.0); EOSINOPHILS ABSOLUTE AUTO 0.23 K/uL (0.00-0.45); EOSINOPHILS PERCENT AUTO 1.3 % (0.0-6.0); IMMATURE GRAN ABSOLUTE AUTO 0.06 K/uL (0.00-0.05); IMMATURE GRAN PERCENT AUTO 0.3 % (0.0-0.4); LYMPHOCYTES ABSOLUTE AUTO 1.08 K/uL (1.00-4.80); LYMPHOCYTES PERCENT AUTO 6.2 % (24.0-44.0); MEAN PLATELET VOLUME 8.8 fL (9.4-12.3); MONOCYTES ABSOLUTE AUTO 1.37 K/uL (0.00-0.80); MONOCYTES PERCENT AUTO 7.9 % (0.0-8.0); NEUTROPHILS ABSOLUTE AUTO 14.49 K/uL (1.80-7.70); NEUTROPHILS PERCENT AUTO 83.8 % (41.0-71.0); NRBC ABSOLUTE 0.00 K/uL (0.00-0.02); NRBC PERCENT 0.0 /100WBC (0.0-0.2); PLATELET COUNT,PLT 243 K/uL (150-400); RED BLOOD CELL COUNT 4.45 M/uL (4.10-5.30); WHITE BLOOD CELL COUNT,WBC 17.32 K/uL (3.9-11.3)
[2025-07-28 17:34] LABS: EPITHELIAL CELLS,URINE FEW (NONE-FEW)
[2025-07-28 17:52] LABS: A/G RATIO 0.9 (0.9-1.6); ALANINE AMINOTRANSFERASE,ALT 41.0 IU/L (14-63); ASPARTATE AMNIOTRANSFERASE,AST 23.0 IU/L (15-37); BILIRUBIN TOTAL 0.4 mg/dL (0.2-1.0); BLOOD UREA NITROGEN,BUN 10.0 mg/dL (7.0-18.0); CARBON DIOXIDE,CO2 26.3 mmol/L (21.0-32.0); CHLORIDE,CL 99.0 mmol/L (98-107); CREATININE 1.0 mg/dL (0.6-1.0); EST CRCL DRUG DOSING (CG) 49.49 mL/min; GLUCOSE RANDOM 196.0 mg/dL (74-106); POTASSIUM,K 4.3 mmol/L (3.5-5.1); PROTEIN TOTAL,TP 7.4 g/dL (6.4-8.2); SODIUM,NA 134.0 mmol/L (136-145)
[2025-07-28] MEDS ORDERED: Sodium Chloride 0.9% 2.5 ML Syringe FLUSH PRN ×2 (17:53→19:36)
[2025-07-28] MEDS ORDERED: Sodium Chloride 0.9% 10 ML Syringe FLUSH PRN ×2 (17:53→19:36)
[2025-07-28 17:59] LABS: ESTIMATED GFR 64.0 mL/min (>60)
[2025-07-28] MEDS: cefTRIAXone 2 GM in Water For Injection, Sterile 20 ML IVPUSH ONE (18:18)
[2025-07-28] MEDS ORDERED: Naloxone 0.4 MG/ML SDV IVPUSH PRN ×2 (18:38→19:36)
[2025-07-28] MEDS: Ondansetron 4 MG/2 ML SDV IVPUSH ONE (18:42)
[2025-07-28 19:01] LABS: LACTIC ACID 1.5 mmol/L (0.4-2.0)
[2025-07-28] MEDS ORDERED: 50% Dextrose in Water 50 ML Syringe IVPUSH PRN (20:57)
[2025-07-29] MEDS: Ondansetron 4 MG Tab.DIS PO PRN (04:53)
[2025-07-29 05:30] LABS: BASOPHILS ABSOLUTE AUTO 0.07 K/uL (0.00-0.20); BASOPHILS PERCENT AUTO 0.4 % (0.0-1.0); EOSINOPHILS ABSOLUTE AUTO 0.14 K/uL (0.00-0.45); EOSINOPHILS PERCENT AUTO 0.8 % (0.0-6.0); IMMATURE GRAN ABSOLUTE AUTO 0.08 K/uL (0.00-0.05); IMMATURE GRAN PERCENT AUTO 0.5 % (0.0-0.4); LYMPHOCYTES ABSOLUTE AUTO 1.28 K/uL (1.00-4.80); LYMPHOCYTES PERCENT AUTO 7.2 % (24.0-44.0); MEAN PLATELET VOLUME 9.0 fL (9.4-12.3); MONOCYTES ABSOLUTE AUTO 1.31 K/uL (0.00-0.80); MONOCYTES PERCENT AUTO 7.4 % (0.0-8.0); NEUTROPHILS ABSOLUTE AUTO 14.87 K/uL (1.80-7.70); NEUTROPHILS PERCENT AUTO 83.7 % (41.0-71.0); NRBC ABSOLUTE 0.00 K/uL (0.00-0.02); NRBC PERCENT 0.0 /100WBC (0.0-0.2); PLATELET COUNT,PLT 194 K/uL (150-400); RED BLOOD CELL COUNT 3.81 M/uL (4.10-5.30); WHITE BLOOD CELL COUNT,WBC 17.75 K/uL (3.9-11.3)
[2025-07-29 06:00] LABS: A/G RATIO 0.8 (0.9-1.6); ALANINE AMINOTRANSFERASE,ALT 35.0 IU/L (14-63); ASPARTATE AMNIOTRANSFERASE,AST 20.0 IU/L (15-37); BILIRUBIN TOTAL 0.4 mg/dL (0.2-1.0); BLOOD UREA NITROGEN,BUN 9.0 mg/dL (7.0-18.0); CARBON DIOXIDE,CO2 26.6 mmol/L (21.0-32.0); CHLORIDE,CL 105.0 mmol/L (98-107); CREATININE 0.9 mg/dL (0.6-1.0); EST CRCL DRUG DOSING (CG) 54.99 mL/min; GLUCOSE RANDOM 130.0 mg/dL (74-106); PHOSPHORUS 3.6 mg/dL (2.6-4.7); POTASSIUM,K 3.8 mmol/L (3.5-5.1); PROTEIN TOTAL,TP 6.2 g/dL (6.4-8.2); SODIUM,NA 140.0 mmol/L (136-145)
[2025-07-29 06:03] LABS: ESTIMATED GFR 73.0 mL/min (>60)
[2025-07-29] MEDS: Propranolol 60 MG Cap.ER PO SCH (08:33)
[2025-07-29] MEDS ORDERED: cefTRIAXone 1 GM in Water For Injection, Sterile 10 ML IVPUSH SCH (18:00)
[2025-07-29] MEDS: Ondansetron 4 MG/2 ML SDV IVPUSH PRN (21:18)
[2025-07-30 06:18] LABS: BASOPHILS ABSOLUTE AUTO 0.06 K/uL (0.00-0.20); BASOPHILS PERCENT AUTO 0.5 % (0.0-1.0); EOSINOPHILS ABSOLUTE AUTO 0.37 K/uL (0.00-0.45); EOSINOPHILS PERCENT AUTO 2.8 % (0.0-6.0); IMMATURE GRAN ABSOLUTE AUTO 0.08 K/uL (0.00-0.05); IMMATURE GRAN PERCENT AUTO 0.6 % (0.0-0.4); LYMPHOCYTES ABSOLUTE AUTO 1.20 K/uL (1.00-4.80); LYMPHOCYTES PERCENT AUTO 9.1 % (24.0-44.0); MEAN PLATELET VOLUME 9.4 fL (9.4-12.3); MONOCYTES ABSOLUTE AUTO 1.24 K/uL (0.00-0.80); MONOCYTES PERCENT AUTO 9.4 % (0.0-8.0); NEUTROPHILS ABSOLUTE AUTO 10.23 K/uL (1.80-7.70); NEUTROPHILS PERCENT AUTO 77.6 % (41.0-71.0); NRBC ABSOLUTE 0.00 K/uL (0.00-0.02); NRBC PERCENT 0.0 /100WBC (0.0-0.2); PLATELET COUNT,PLT 191 K/uL (150-400); RED BLOOD CELL COUNT 3.74 M/uL (4.10-5.30); WHITE BLOOD CELL COUNT,WBC 13.18 K/uL (3.9-11.3)
[2025-07-30 06:47] LABS: A/G RATIO 0.7 (0.9-1.6); ALANINE AMINOTRANSFERASE,ALT 49.0 IU/L (14-63); ASPARTATE AMNIOTRANSFERASE,AST 25.0 IU/L (15-37); BILIRUBIN TOTAL 0.6 mg/dL (0.2-1.0); BLOOD UREA NITROGEN,BUN 7.0 mg/dL (7.0-18.0); CARBON DIOXIDE,CO2 25.7 mmol/L (21.0-32.0); CHLORIDE,CL 101.0 mmol/L (98-107); CREATININE 0.9 mg/dL (0.6-1.0); EST CRCL DRUG DOSING (CG) 54.99 mL/min; GLUCOSE RANDOM 160.0 mg/dL (74-106); POTASSIUM,K 3.9 mmol/L (3.5-5.1); PROTEIN TOTAL,TP 6.3 g/dL (6.4-8.2); SODIUM,NA 137.0 mmol/L (136-145)
[2025-07-30 06:49] LABS: ESTIMATED GFR 73.0 mL/min (>60)
[2025-07-30] MEDS: Lactulose Soln 10 GM/15 ML 15 ML UD Cup PO ONE (18:31)
[2025-07-31 06:01] LABS: BASOPHILS ABSOLUTE AUTO 0.05 K/uL (0.00-0.20); BASOPHILS PERCENT AUTO 0.5 % (0.0-1.0); EOSINOPHILS ABSOLUTE AUTO 0.32 K/uL (0.00-0.45); EOSINOPHILS PERCENT AUTO 3.3 % (0.0-6.0); IMMATURE GRAN ABSOLUTE AUTO 0.05 K/uL (0.00-0.05); IMMATURE GRAN PERCENT AUTO 0.5 % (0.0-0.4); LYMPHOCYTES ABSOLUTE AUTO 0.94 K/uL (1.00-4.80); LYMPHOCYTES PERCENT AUTO 9.7 % (24.0-44.0); MEAN PLATELET VOLUME 9.0 fL (9.4-12.3); MONOCYTES ABSOLUTE AUTO 1.03 K/uL (0.00-0.80); MONOCYTES PERCENT AUTO 10.6 % (0.0-8.0); NEUTROPHILS ABSOLUTE AUTO 7.34 K/uL (1.80-7.70); NEUTROPHILS PERCENT AUTO 75.4 % (41.0-71.0); NRBC ABSOLUTE 0.00 K/uL (0.00-0.02); NRBC PERCENT 0.0 /100WBC (0.0-0.2); PLATELET COUNT,PLT 216 K/uL (150-400); RED BLOOD CELL COUNT 3.78 M/uL (4.10-5.30); WHITE BLOOD CELL COUNT,WBC 9.73 K/uL (3.9-11.3)
[2025-07-31 06:30] LABS: A/G RATIO 0.7 (0.9-1.6); ALANINE AMINOTRANSFERASE,ALT 58.0 IU/L (14-63); ASPARTATE AMNIOTRANSFERASE,AST 35.0 IU/L (15-37); BILIRUBIN TOTAL 0.5 mg/dL (0.2-1.0); BLOOD UREA NITROGEN,BUN 5.0 mg/dL (7.0-18.0); CARBON DIOXIDE,CO2 21.9 mmol/L (21.0-32.0); CHLORIDE,CL 99.0 mmol/L (98-107); CREATININE 0.8 mg/dL (0.6-1.0); EST CRCL DRUG DOSING (CG) 61.86 mL/min; GLUCOSE RANDOM 158.0 mg/dL (74-106); POTASSIUM,K 3.6 mmol/L (3.5-5.1); PROTEIN TOTAL,TP 6.9 g/dL (6.4-8.2); SODIUM,NA 132.0 mmol/L (136-145)
[2025-07-31 06:31] LABS: ESTIMATED GFR 84.0 mL/min (>60)
[2025-07-31] MEDS: Lactulose Soln 10 GM/15 ML 15 ML UD Cup PO SCH (08:35)
[2025-08-01 06:47] LABS: MEAN PLATELET VOLUME 8.9 fL (9.4-12.3); NRBC ABSOLUTE 0.00 K/uL (0.00-0.02); NRBC PERCENT 0.0 /100WBC (0.0-0.2); PLATELET COUNT,PLT 260 K/uL (150-400); RED BLOOD CELL COUNT 4.19 M/uL (4.10-5.30); WHITE BLOOD CELL COUNT,WBC 10.09 K/uL (3.9-11.3)
[2025-08-01 07:11] LABS: BLOOD UREA NITROGEN,BUN 6.0 mg/dL (7.0-18.0); CARBON DIOXIDE,CO2 26.2 mmol/L (21.0-32.0); CHLORIDE,CL 98.0 mmol/L (98-107); CREATININE 0.9 mg/dL (0.6-1.0); EST CRCL DRUG DOSING (CG) 54.99 mL/min; GLUCOSE RANDOM 165.0 mg/dL (74-106); POTASSIUM,K 3.4 mmol/L (3.5-5.1); SODIUM,NA 134.0 mmol/L (136-145)
[2025-08-01 07:13] LABS: ESTIMATED GFR 73.0 mL/min (>60)
[2025-08-01 07:58] LABS: BAND ABSOLUTE MAN 0.40; BAND PERCENT MAN 4 %; LYMPHOCYTES ABSOLUTE MAN 1.11 K/uL (1.00-4.80); LYMPHOCYTES PERCENT MAN 11 % (24-44); SEG NEUTROPHILS ABSOLUTE MAN 6.46 K/uL (1.80-7.70); SEG NEUTROPHILS PERCENT MAN 64 % (41-71)
[2025-08-01 07:59] LABS: BASOPHILS ABSOLUTE MAN 0.10 K/uL (0.00-0.20); BASOPHILS PERCENT MAN 1 % (0-1); EOSINOPHILS ABSOLUTE MAN 0.40 K/uL (0.00-0.45); EOSINOPHILS PERCENT MAN 4 % (0-6); MONOCYTES ABSOLUTE MAN 1.61 K/uL (0.00-0.80); MONOCYTES PERCENT MAN 16 % (0-8)
[2025-08-01] MEDS: Potassium Chloride 20 MEQ Tab.ER PO ONE (10:00)
[2025-08-01] MEDS: cefTRIAXone 2 GM in Water For Injection, Sterile 20 ML IVPUSH SCH (10:49)
== END 2025-08-01 19:19 | disposition home or self-care (01) | DRG 690 ==
LOC: MW.ED 16:48 → MW.MS 20:21
PROVIDERS: ADMIT Internal Medicine; ATTEND Internal Medicine
DX: N10 Acute pyelonephritis (principal); Q63.1 Lobulated, fused and horseshoe kidney; K59.00 Constipation, unspecified; E11.9 Type 2 diabetes mellitus without complications; E87.6 Hypokalemia; I10 Essential (primary) hypertension; K21.9 Gastro-esophageal reflux disease without esophagitis; F41.9 Anxiety disorder, unspecified; F32.A Depression, unspecified; E86.0 Dehydration; M79.7 Fibromyalgia; Z79.84 Long term (current) use of oral hypoglycemic drugs; Z79.899 Other long term (current) drug therapy
CPT/HCPCS: 36415; 71045; 71045-26; 74018; 74018-26; 74176; 74176-26; 80048; 80053; 81001; 82947; 83605; 83735; 84100; 85025; 87040; 87077; 87086; 87088; 87186; 96361; 96374; 96375; 99284; 99285-25; A4216; A9270-GY; J0692; J0696; J1171; J1650; J1815-GY; J2270; J2405; J7030